=== PATIENT | male | born 1950 | race Caucasian/White ===

== ENCOUNTER → 2018-12-30 | Outpatient (CLI) | payer MEDICARE ==
[~2018-12-30] MED LIST: ASPI-496 PO; DICL100G19 TP; ESCI20TA PO; FENO145T32 PO; LAMO200T2 PO; LORA-247 PO
== END | disposition home or self-care (01) ==
LOC: RAD 08:46
PROVIDERS: ATTEND Physician Assistant Medical
DX: I71.4 Abdominal aortic aneurysm, without rupture (principal); Z87.891 Personal history of nicotine dependence
CPT/HCPCS: 76706

== ENCOUNTER → 2020-04-05 | Outpatient (CLI) | payer MEDICARE ==
[~2020-04-05] MED LIST changes: -LAMO200T2 PO; +LAMO200T6 PO
== END | disposition home or self-care (01) ==
LOC: RAD 11:33
PROVIDERS: ATTEND Family Medicine
DX: M79.661 Pain in right lower leg (principal)